=== PATIENT | female | born 1990 | race Caucasian/White ===

== ENCOUNTER → 2016-04-14 | Outpatient (CLI) | payer BC ==
[~2016-04-14] MED LIST: AMETHIA1 TAB PO; CIPRO 500MG TA500 MG PO; KLOR-CON M2020 MEQ PO; LANTUS100 U/ML SQ; LEVEMIR100 U/ML SQ; NORCO 325 MG-51 TAB PO; NOVOLOG 100U100 U/M1 SQ; PHENERGAN25 MG RC; SYNTHROID0.112 MG/T PO; SYNTHROID0.125 MG/T PO; ZOFRAN 4MG T4 MG/TAB PO
== END ==
LOC: SUN.DIA 09:44
DX: E10.65 Type 1 diabetes mellitus with hyperglycemia (principal); Z71.3 Dietary counseling and surveillance; E66.8 Other obesity; Z68.36 Body mass index [BMI] 36.0-36.9, adult
CPT/HCPCS: G0108

== ENCOUNTER → 2016-05-12 | Outpatient (CLI) | payer BC | LOC: SUN.DIA 14:29 | DX: E10.65 Type 1 diabetes mellitus with hyperglycemia (principal); Z79.4 Long term (current) use of insulin; E66.9 Obesity, unspecified; Z68.36 Body mass index [BMI] 36.0-36.9, adult; Z71.3 Dietary counseling and surveillance; E03.9 Hypothyroidism, unspecified | CPT/HCPCS: G0108 ==

== ENCOUNTER 2019-12-23 21:57 | Emergency (ER) | payer BC ==
[~2019-12-23] VITALS: Ht 165.1 cm; Wt 100.0 kg
[2019-12-23 22:10] VITALS: TEMP 98.3
[2019-12-23 22:58] LABS: BASO % 0.2 % (0.0-2.0); EOS # 0.1 (0.0-0.7); EOS % 0.7 % (0-4.0); GRAN # 7.4 (1.4-6.5); GRAN % 66.1 % (42.2-75.2); HEMATOCRIT 42.9 % (37.0-47.0); HEMOGLOBIN 13.6 g/dl (12.5-16.0); LYMPH % 26.9 % (20.0-51.0); MEAN CELL VOLUME 82 fl (80.0-100.0); MEAN CORPUSCULAR HEMOGLOBIN 26 pg (27.0-31.0); MEAN CORPUSCULAR HGB CONC 32 g/dl (33.0-37.0); MONO # 0.6 (0.1-0.6); MONO % 5.7 % (1.7-9.3); PLATELET COUNT 309 K/mm3 (130-400); RED BLOOD COUNT 5.23 M/mm3 (4.10-5.30); REDCELL DISTRIBUTION WIDTH-CV 13.2 % (11.5-14.5)
[2019-12-23 23:12] LABS: ACETONE,SERUM NEGATIVE; ALANINE AMINOTRANSFERASE 17 U/L (4-34); ALBUMIN 4.4 gm/dL (3.5-5.0); ALKALINE PHOSPHATASE 105 U/L (50-136); ANION GAP 10 mmol/L (7-16); AST,SGOT 21 U/L (15-37); BILIRUBIN,TOTAL 0.3 mg/dL (0.0-1.0); BLOOD UREA NITROGEN 18 mg/dL (7-17); C-REACTIVE PROTEIN 1.2 mg/dL (0.0-0.9); CALCIUM 9.2 mg/dL (8.4-10.2); CARBON DIOXIDE 26 mmol/L (22-30); CHLORIDE 98 mmol/L (98-107); CREATININE, serum 0.83 (0.52-1.25); POTASSIUM 4.3 mmol/L (3.4-5.0); SODIUM 133 mmol/L (137-145); TOTAL PROTEIN 8.1 gm/dL (6.4-8.2)
[2019-12-23 23:13] LABS: GLUCOSE 440 mg/dL (74-106)
[2019-12-23 23:34] LABS: COLLECTION METHOD CLEAN CATCH
[2019-12-23 23:41] LABS: MUCOUS Present /lpf; PH 6 (5-8); URINE APPEARANCE Clear; URINE BACTERIA Rare /hpf; URINE BILIRUBIN Negative (NEGATIVE); URINE BLOOD Negative (NEGATIVE); URINE COLOR Straw; URINE GLUCOSE 3+ (NEGATIVE); URINE KETONE Trace (NEGATIVE); URINE LEUKOCYTE ESTERASE Negative (NEGATIVE); URINE NITRATE Negative (NEGATIVE); URINE PROTEIN(semi-quant) Negative (NEGATIVE); URINE RBC 0-2 /hpf; URINE UROBILINOGEN Negative (NEGATIVE)
[2019-12-24] MEDS ORDERED: NOVOLOG FLEX100 U/ML SQ (01:21)
[2019-12-24] MEDS ORDERED: TRESIBA FL200 UNIT/1 SQ (01:21)
[2019-12-24 01:36] VITALS: BP 138/85; PULSE 92
== END 2019-12-24 01:36 | disposition home or self-care (01) ==
LOC: COL.ER 21:57
PROVIDERS: Emergency Medicine
DX: E10.9 Type 1 diabetes mellitus without complications (principal); Z88.0 Allergy status to penicillin; Z79.4 Long term (current) use of insulin
CPT/HCPCS: J1815; J7030

== ENCOUNTER 2020-10-09 20:56 | Emergency (ER) | payer BC ==
[~2020-10-09] VITALS: Ht 165.1 cm; Wt 107.2 kg
[~2020-10-09 20:56] MED LIST changes: +NOVOLOG FLEX100 U/ML SQ; +TRESIBA FL200 UNIT/1 SQ
[2020-10-09 21:37] VITALS: TEMP 98.3
[2020-10-09 23:35] LABS: BASO % 0.3 % (0.0-2.0); EOS # 0.1 (0.0-0.7); EOS % 0.7 % (0-4.0); GRAN # 7.4 (1.4-6.5); HEMATOCRIT 37.7 % (37.0-47.0); HEMOGLOBIN 11.9 g/dl (12.5-16.0); LYMPH # 3.1 (1.2-3.4); LYMPH % 27.1 % (20.0-51.0); MEAN CELL VOLUME 83 fl (80.0-100.0); MEAN CORPUSCULAR HEMOGLOBIN 26 pg (27.0-31.0); MEAN CORPUSCULAR HGB CONC 32 g/dl (33.0-37.0); MEAN PLATELET VOLUME 9.6 fl (7.4-10.4); MONO # 0.8 (0.1-0.6); MONO % 6.6 % (1.7-9.3); PLATELET COUNT 314 K/mm3 (130-400); RED BLOOD COUNT 4.57 M/mm3 (4.10-5.30); REDCELL DISTRIBUTION WIDTH-CV 13.7 % (11.5-14.5)
[2020-10-09 23:45] LABS: ALBUMIN 3.9 gm/dL (3.5-5.0); BILIRUBIN,TOTAL 0.3 mg/dL (0.0-1.0); CALCIUM 8.4 mg/dL (8.4-10.2); CREATININE, serum 0.69 (0.52-1.25); POTASSIUM 3.6 mmol/L (3.4-5.0)
[2020-10-10 01:27] VITALS: BP 122/78; PULSE 91
== END 2020-10-10 01:27 | disposition home or self-care (01) ==
LOC: COL.ER 20:56
PROVIDERS: Emergency Medicine
DX: E10.65 Type 1 diabetes mellitus with hyperglycemia (principal); E86.0 Dehydration
CPT/HCPCS: J2405; J7030

== ENCOUNTER → 2021-02-20 | Outpatient (CLI) | payer BC | LOC: COL.RAD 02-18 10:30 | DX: R11.0 Nausea (principal); R19.7 Diarrhea, unspecified; R10.11 Right upper quadrant pain ==

== ENCOUNTER → 2021-03-10 | Outpatient (CLI) | payer BC | LOC: COL.RAD 07:00 | DX: R11.0 Nausea (principal); R19.7 Diarrhea, unspecified; R10.84 Generalized abdominal pain; R10.13 Epigastric pain | CPT/HCPCS: A9537; J2805 ==

== ENCOUNTER → 2021-03-25 | Outpatient (CLI) | payer BC | LOC: COL.RAD 06:27 | DX: R10.12 Left upper quadrant pain (principal) | CPT/HCPCS: A9541 ==

== ENCOUNTER 2021-05-20 06:25 | Day surgery (SDC) | payer BC ==
[~2021-05-20] VITALS: Ht 165.1 cm; Wt 102.3 kg
[2021-05-20] MEDS ORDERED: SYNTHROID0.2 MG/TAB PO (07:18)
[2021-05-20] MEDS ORDERED: ZOLOFT 50MG50 MG PO (07:21)
[2021-05-20 07:28] VITALS: BP 135/76; PULSE 92; TEMP 97
[2021-05-20] MEDS ORDERED: NORCO 325 MG-51 TAB PO (09:58)
[2021-05-20] MEDS ORDERED: MOTRIN 600600 MG/TAB PO (09:59)
[2021-05-20 11:00] VITALS: BP 150/67; PULSE 88; TEMP 98.1
--- NOTE | 2021-05-20 11:00 | NUR ---
RECEIVED PT FROM PACU. REPORT RECEIVED FROM DUSTIN JACKSON. VS OBTAINED. PT TOLERATING ICE WATER. REORIENTED PT TO ROOM AND CALL LIGHT. WILL CONTINUE TO MONITOR PT.
[2021-05-20 11:15] VITALS: BP 142/70; PULSE 67
--- NOTE | 2021-05-20 11:15 | NUR ---
PT CONTINUES TO REST COMFORTABLY. DENIES ANY NEEDS AT THIS TIME. WILL CONTINUE TO MONITOR PT.
[2021-05-20 11:30] VITALS: BP 135/73; PULSE 80
--- NOTE | 2021-05-20 11:30 | NUR ---
PT TOLERATING WATER. RESTING COMFORTABLY AT THIS TIME. WILL CONTINUE TO MONITOR PT.
[2021-05-20 11:45] VITALS: BP 130/74; PULSE 79
--- NOTE | 2021-05-20 11:45 | NUR ---
PT TOLERATING PUDDING AND WATER. CONTINUES TO DENY ANY NEEDS AT THIS TIME. NC DC'D AT THIS TIME.
[2021-05-20 12:24] VITALS: BP 150/67; PULSE 88
--- NOTE | 2021-05-20 12:25 | NUR ---
IV DC'D AT THIS TIME.
--- NOTE | 2021-05-20 12:30 | NUR ---
DISCHARGE EDUCATION COMPLETED WITH PT AND HER MOTHER. THEY VERBALIZED UNDERSTANDING OF HOME AND FOLLOW UP CARE. ALL QUESTIONS ANSWERED. DISCHARGE PAPERWORK GIVEN TO PT'S MOTHER.
--- NOTE | 2021-05-20 12:45 | NUR ---
PT OFF UNIT PER WHEELCHAIR. DC'D TO HOME WITH MOTHER AYAKA PER PERSONAL VEHICLE.
[2021-05-23] MEDS ORDERED: NORCO 325 MG-51 TAB PO (14:06)
== END 2021-05-20 12:45 | disposition home or self-care (01) ==
LOC: SDCO 06:25
DX: K80.10 Calculus of gallbladder with chronic cholecystitis without obstruction (principal); E10.8 Type 1 diabetes mellitus with unspecified complications; Z86.16 Personal history of COVID-19
CPT/HCPCS: J0330; J0690; J1170; J1885; J2370; J2405; J2550; J2704; J2765; J3010; J7030